=== PATIENT | female | born 1970 ===

== ENCOUNTER 2018-05-04 06:32 | Day surgery (SDC) | payer OTHER ==
[2018-05-03 10:31] VITALS: BMI 28.3
--- NOTE | 2018-05-04 08:51 | CP.SDSHP ---
Same Day Surgery H & P - History Proposed Procedure: colonoscopy Pre-Op Diagnosis: RLQ Pain. Persistent diarrhea. Abnormal CT SCan of colon ([facility] [place]) - Previous Medical/Surgical History Misc: Other (Gerd, gastritis, hiatal hernia, DJD) Previous Surgical History: Abdominoplasty. x 1 - Allergies Allergies: Allergies No Known Allergies Allergy (Verified 05/04/18 06:58) - Physical Exam Vital Signs: Vital Signs 05/04/18 07:09 Temperature 98.6 F Pulse Rate 80 Respiratory 20 Rate Blood Pressure 120/85 O2 Sat by Pulse 98 Oximetry Mental Status: Alert & Oriented x3 Neuro: WNL Heart: WNL Lungs: WNL GI: WNL - Impression Impression: RLQ Pain. Abnormal CT Scan. Persistent diarrhea Pt. Evaluated Today:Candidate for Anesthesia & Procedure: Yes - Date & Time Date: 05/04/18 Time: 08:51 Short Stay Discharge - Short Stay Discharge Admitting Diagnosis/Reason for Visit: RIGHT LOWER QUADRANT, DIARRHEA Disposition: HOME/ ROUTINE Referrals: Chun Alberts [Primary Care Provider] -
[2018-05-04] MEDS ORDERED: Propofol 10 mg/ml Inj (20 ML) ONE (08:54)
[2018-05-04] MEDS ORDERED: Lactated Ringer's 500 ML IV ONE ×2 (08:59)
[2018-05-04 09:05] VITALS: O2SAT 100
[2018-05-04] MEDS ORDERED: Lactated Ringer's 500 ML IV SCH (09:30)
[2018-05-04 09:33] VITALS: TEMP 97.7
[2018-05-04 10:02] VITALS: RESP 18
[2018-05-04 10:19] VITALS: BP 128/70; PULSE 78
== END 2018-05-04 10:15 | disposition home or self-care (01) ==
LOC: C.ENDO 06:32
PROVIDERS: ATTEND Internal Medicine Gastroenterology
DX: K52.9 Noninfective gastroenteritis and colitis, unspecified (principal); K21.9 Gastro-esophageal reflux disease without esophagitis; R10.31 Right lower quadrant pain; K44.9 Diaphragmatic hernia without obstruction or gangrene; K64.1 Second degree hemorrhoids
CPT/HCPCS: 45380; 87045; 87177; 87209; 87230; 88305; 89055; J2704; J7120